=== PATIENT | male | born 1965 | race Caucasian/White ===

== ENCOUNTER 2020-07-26 08:07 | Emergency (ER) | payer OTHER ==
[~2020-07-26] VITALS: Ht 208.3 cm; Wt 77.1 kg
--- NOTE | ~2020-07-26 | EKG ---
[facility] [address] [facility] [place], [place] [address] Draft EK completed, results pending confirmation PATIENT NAME: VIRGINIAMELE Electrocardiogram DATE OF : 65 PHYSICIAN: PRELIMINARY REPORT #: [id number] REPORT IS CONFIDENTIAL AND NOT TO BE RELEASED WITHOUT AUTHORIZATION
[~2020-07-26 08:07] MED LIST: NORCO 5-325 TA1 EACH PO
[2020-07-26] MEDS ORDERED: DICLOFENAC SOD100 MG PO (08:19)
--- NOTE | 2020-07-27 13:46 | EKG ---
[facility] [address] [facility] [place], [place] [address] Signed Normal sinus rhythm Cannot rule out Anterior infarct , age undetermined Abnormal ECG When compared with ECG of 26-JUL-2020 09:23, (Unconfirmed) Previous ECG has undetermined rhythm, needs review Confirmed by LILY VU DO ([id number]) on 07/27/2020 1:45:57 PM Electronically Signed By: LILY VU DO 07/27/20 1346 PATIENT NAME: MELE COLEMAN Electrocardiogram DATE OF : 65 PHYSICIAN: LILY VU DO REPORT #: [id number] REPORT IS CONFIDENTIAL AND NOT TO BE RELEASED WITHOUT AUTHORIZATION
== END 2020-07-26 10:32 | disposition home or self-care (01) ==
LOC: ED 08:07
DX: R53.83 Other fatigue (principal); R94.6 Abnormal results of thyroid function studies; F17.200 Nicotine dependence, unspecified, uncomplicated
CPT/HCPCS: 80053; 84439; 84443; 84484; 85025; 93005; 93010; 99283-25

== ENCOUNTER 2024-01-31 09:50 | Emergency (ER) | payer OTHER ==
[~2024-01-31] VITALS: Ht 208.3 cm; Wt 77.3 kg
[~2024-01-31 09:50] MED LIST changes: +DICLOFENAC SOD100 MG PO
[2024-01-31] MEDS ORDERED: ZANAFLEX4 MG PO (10:02)
[2024-01-31] MEDS ORDERED: EUTHYROX137 MCG PO (10:02)
[2024-01-31] MEDS ORDERED: ondansetron HCL 4 MG/2 ML VIAL IV PRN (13:45)
[2024-01-31] MEDS ORDERED: KETOROLAC TROMETHAMINE 15 MG/ML VIAL IV ONE (13:45)
[2024-01-31 13:58] LABS: EOSINOPHILS 1.8 % (0-6); HEMATOCRIT 46.6 % (35.0-50.0); HEMOGLOBIN 15.9 g/dL (12.0-18.0); LYMPHOCYTES 29.2 % (24-44); MCH 31.7 (27-36); MCHC 34.2 g/dl (30-36); MCV 92.7 fl (81-99); MONOCYTES 7.3 % (0-12); NEUTROPHILS 60.7 % (39-80); PLATELET COUNT 283 K/uL (140-440); RBC 5.02 M/ul (4.3-5.7); RDW 14.4 (10.5-15.0)
[2024-01-31 14:02] LABS: BILIRUBIN, URINE NEGATIVE (negative); BLOOD/HGB, URINE NEGATIVE (Negative); KETONE, URINE NEGATIVE (Negative); LEUK ESTERASE, URINE NEGATIVE (negative); NITRITE, URINE NEGATIVE (negative)
[2024-01-31 14:14] LABS: ALBUMIN 4.1 g/dL (3.4-5.0); ALBUMIN/GLOBULIN RATIO 1.17 (1.1-2.4); ANION GAP 11.3 (7-21); BILIRUBIN, TOTAL 0.5 ng/dL (0.2-1.0); BUN/CREATININE RATIO 19.76 (6.0-28.6); CALCIUM 9.7 mg/dL (8.5-10.1); CREATININE, SERUM 0.86 mg/dL (0.70-1.30); POTASSIUM 4.3 mmol/L (3.5-5.1); PROTEIN, TOTAL 7.6 g/dL (6.4-8.2)
[2024-01-31 15:40] VITALS: BP 110/75
[2024-01-31] MEDS ORDERED: CYCLOBENZAPRINE10 MG PO (15:40)
== END 2024-01-31 15:40 | disposition home or self-care (01) ==
LOC: ED 09:50
PROVIDERS: Emergency Medicine
DX: M54.50 Low back pain, unspecified (principal); E03.9 Hypothyroidism, unspecified; F17.200 Nicotine dependence, unspecified, uncomplicated; Z79.899 Other long term (current) drug therapy
CPT/HCPCS: 36415; 74177; 80053; 81003; 85025; 99284-25; J1885; Q9967